=== PATIENT | female | born 1990 ===

== ENCOUNTER 2016-08-27 08:24 | Observation (INO) | payer MEDICAID ==
[2016-08-27 08:29] VITALS: BMI 22.7
--- NOTE | 2016-08-27 08:52 | ED PDOC ---
HPI: General Adult Time Seen by Provider: 08/27/16 08:49 Chief Complaint (Provider): syncopal episode History Per: Patient History/Exam Limitations: no limitations Additional Complaint(s): 26yo female comes to the ED complaining of a syncopal episode this morning. States she had 2 similar episodes in the past 2 weeks. Prior to each episode patient feels "hot and cold". Describes episodes as waking up on the floor. She currently has some abdominal pain and vomit. No chest pain, shortness of breath. Past Medical History Reviewed: Historical Data, Nursing Documentation, Vital Signs Vital Signs: Last Vital Signs Temp 98.6 F 08/27/16 08:28 Pulse 92 H 08/27/16 08:28 Resp 19 08/27/16 08:28 BP 98/62 L 08/27/16 08:28 Pulse Ox 100 08/27/16 08:57 - Medical History PMH: Anxiety - Surgical History Surgical History: - Family History Family History: States: Diabetes, Hypertension - Allergies Allergies/Adverse Reactions: Allergies Allergy/AdvReac Type Severity Reaction Status Date / Time shellfish derived Allergy Verified 08/27/16 08:55 Review of Systems ROS Statement: Except As Marked, All Systems Reviewed And Found Negative Cardiovascular: Negative for: Chest Pain Respiratory: Negative for: Shortness of Breath Gastrointestinal: Positive for: Vomiting, Abdominal Pain Physical Exam - Reviewed Nursing Documentation Reviewed: Yes Vital Signs Reviewed: Yes - Physical Exam Appears: Positive for: Well, Non-toxic, No Acute Distress Head Exam: Positive for: ATRAUMATIC, NORMAL INSPECTION, NORMOCEPHALIC Skin: Positive for: Warm, Dry Eye Exam: Positive for: EOMI, PERRL Cardiovascular/Chest: Positive for: Regular Rate, Rhythm Respiratory: Positive for: Normal Breath Sounds. Negative for: Rales, Rhonchi, Wheezing Gastrointestinal/Abdominal: Positive for: Normal Exam, Soft. Negative for: Tenderness Extremity: Positive for: Normal ROM Neurologic/Psych: Positive for: Alert, Oriented (x3) - Laboratory Results Result Diagrams: 08/27/16 09:10 08/27/16 09:10 - ECG O2 Sat by Pulse Oximetry: 100 (RA) Pulse Ox Interpretation: Normal Medical Decision Making Medical Decision Makin CBC ordered. Disposition - Clinical Impression Clinical Impression: Syncope - Patient ED Disposition Is Patient to be Admitted: Yes - Disposition Disposition Time: 10:20 Condition: FAIR - Pt Status Changed To: Hospital Disposition Of: Observation - POA Present On Arrival: None Additional Comments - Additional Comments Additional Comments: Scribe Attestation Documented by Diogenes Workman acting as a scribe for Herman Lockwood MD. Provider Attestation All medical record entries made by the Scribe were at my direction and personally dictated by me. I have reviewed the chart and agree that the record accurately reflects my personal performance of the history, physical exam, medical decision making, and the department course for this patient. I have also personally directed, reviewed, and agree with the discharge instructions and disposition
[2016-08-27] MEDS: Sodium Chloride 0.9% 1,000 ML IV STA (09:15)
[2016-08-27 09:30] LABS: BASO % 0.1 % (0.0-2.0); EOS # 0.1 K/uL (0.0-0.7); EOS % 0.7 % (0.0-4.0); HEMATOCRIT 39.8 % (34.0-47.0); LYMPH # 0.5 K/uL (1.0-4.3); LYMPH % 4.7 % (20.0-40.0); MEAN CORPUSCULAR HEMOGLOBIN 27.7 pg (27.0-31.0); MEAN CORPUSCULAR HGB CONC 33.8 g/dL (33.0-37.0); MEAN PLATELET VOLUME 8.9 fl (7.2-11.7); MONO # 0.4 K/uL (0.0-0.8); MONO % 3.6 % (0.0-10.0); NEUT # 9.3 K/uL (1.8-7.0); NEUT % 90.9 % (50.0-75.0); PLATELET COUNT 202 K/uL (130-400); RED CELL DISTRIBUTION WIDTH 14.2 % (11.5-14.5); WHITE BLOOD COUNT 10.3 K/uL (4.8-10.8)
[2016-08-27 09:43] LABS: ALB/GLOB RATIO 1.5 (1.0-2.1); ALKALINE PHOSPHATASE 63 U/L (38-126); ALT/SGPT 48 U/L (9-52); AST/SGOT 32 U/L (14-36); BILIRUBIN,TOTAL 0.5 mg/dl (0.2-1.3); BLOOD UREA NITROGEN 12 mg/dl (7-17); CALCIUM 9.1 mg/dL (8.4-10.2); CARBON DIOXIDE 24 mmol/L (22-30); CHLORIDE 104 mmol/L (98-107); GFR AFRICAN-AMERICAN > 60; GLUCOSE,RANDOM 93 mg/dL (65-105); POTASSIUM 3.9 MMOL/L (3.6-5.0); SODIUM 140 mmol/l (132-148); TOTAL PROTEIN 7.7 G/DL (6.3-8.2)
--- NOTE | 2016-08-27 10:00 | CT ---
PROCEDURE: CT HEAD WITHOUT CONTRAST. HISTORY: Syncope COMPARISON: 12/09/2013. TECHNIQUE: Axial computed tomography images were obtained through the head/brain without intravenous contrast. Radiation dose: Total exam DLP = 782.56 mGy-cm. This CT exam was performed using one or more of the following dose reduction techniques: Automated exposure control, adjustment of the mA and/or kV according to patient size, and/or use of iterative reconstruction technique. FINDINGS: HEMORRHAGE: No intracranial hemorrhage. BRAIN: No mass, mass effect, extra-axial fluid collection or edema. Beal-white matter differentiation is preserved. VENTRICLES: The ventricles are normal in size, shape and configuration.. CALVARIUM: The skull base and calvarium are normal. PARANASAL SINUSES: Predominantly clear. MASTOID AIR CELLS: Predominantly clear nges. OTHER FINDINGS: None. IMPRESSION: No acute intracranial abnormality.
[2016-08-27 12:35] LABS: NEUTROPHIL 90 % (42-75); TOTAL CELLS COUNTED 100
--- NOTE | 2016-08-27 15:33 | CP.PCM.CON ---
History of Present Illness - History of Present Illness History of Present Illness: 26yo female comes to the ED complaining of a syncopal episode this morning. States she had 2 similar episodes in the past 2 weeks. Prior to each episode patient feels "hot and cold". Describes episodes as waking up on the floor. No chest pain, shortness of breath. Pt has had Syncopal episodes since 2013May 2013 tentaively Dx with New Onset seizure disorder she was advised to f/u with neuro She never followed up Has seen a MD as out pt for this EKG: normal x 2 Echo: Normal Good LV Function Labs all WNL Past Patient History - Past Social History Smoking Status: Never Smoked - PSYCHIATRIC Hx Anxiety: Yes Hx Substance Use: No - SURGICAL HISTORY Hx Section: Yes (x2) - ANESTHESIA Hx Anesthesia: Yes Hx Anesthesia Reactions: No Meds Allergies/Adverse Reactions: Allergies Allergy/AdvReac Type Severity Reaction Status Date / Time shellfish derived Allergy Verified 08/27/16 08:55 - Medications Medications: Current Medications Acetaminophen (Tylenol 325mg Tab) 650 mg PO Q4 PRN PRN Reason: Pain, Mild (1-3) Sodium Chloride (Sodium Chloride 0.9%) 1,000 mls @ 150 mls/hr IV .Q6H40M STA Stop: 08/27/16 15:35 Last Admin: 08/27/16 09:15 Dose: 150 mls/hr Ondansetron HCl (Zofran Inj) 4 mg IVP Q4 PRN PRN Reason: Nausea/Vomiting Physical Exam - Respiratory Exam Respiratory Exam: NORMAL BREATHING PATTERN - Cardiovascular Exam Cardiovascular Exam: REGULAR RHYTHM Results - Vital Signs Recent Vital Signs: Last Vital Signs Temp 85 F L 08/27/16 14:59 Pulse 90 08/27/16 12:30 Resp 12 08/27/16 14:59 BP 99/47 L 08/27/16 14:59 Pulse Ox 100 08/27/16 14:59 - Labs Result Diagrams: 08/27/16 09:10 08/27/16 09:10
--- NOTE | 2016-08-27 16:03 | CARD ---
APPROVED REPORT EKG Measurement Heart [id number] <Conclusion> Normal sinus rhythm Cannot rule out Anterior infarct, age undetermined (Were V2 and V3 lead switched??) Abnormal ECG
[2016-08-27] MEDS ORDERED: Gadodiamide 287 MG/ML VIAL (15ML) IV ONE (17:52)
--- NOTE | 2016-08-27 18:17 | CON ---
DATE: 08/27/2016 CHIEF COMPLAINT: Syncope. HISTORY OF PRESENT ILLNESS: A 26-year-old woman with history of anxiety who presented to the [facility] for a syncopal episode. Apparently, she has had nausea, vomiting and abdominal pain for the past f ew days and had passed out. She says she has history of syncopal episodes in the past where she had a hot and cold sensation and passed out. She also mentions that when she gets anxious, panics or ang ry she also passes out. No history of febrile seizures, no history of meningitis, no history of trau ma to the brain. Her blood pressure was 90/60 in the ER. She has not been hydrating throughout the day. She has been having very poor sleep over the past month due to her being home alone with her 2 kids and also has an active job as builder. No acute events overnight. No focal weakness in the ext remities. No seizure-like activity. She has a very flat affect. PAST MEDICAL HISTORY: Anxiety. PAST SURGICAL HISTORY: . SOCIAL HISTORY: No illicit drug use, smoking, or EtOH abuse. FAMILY HISTORY: Noncontributory. REVIEW OF SYSTEMS: A 14-point review of systems is negative except for the HPI. MEDICATIONS: Reviewed via nurse's reconciliation sheet. ALLERGIES: SHELLFISH. LABORATORIES: Sodium 140, potassium 3.9, chloride 104, carbon dioxide 24, BUN of 12, creatinine 0.6, random glucose 93. PHYSICAL EXAMINATION: VITAL SIGNS: Temperature 98.5, pulse rate 90, blood pressure 99/47, respiratory rate of 19, oxygen s aturation 100% on room air. GENERAL: The patient is sitting up in bed in no acute distress. HEENT: Atraumatic, normocephalic. PERRLA. Extraocular muscles intact. NECK: Supple, no JVD, no adenopathy noted. LUNGS: Clear to auscultation. No adventitious sounds. HEART: S1, S2, normal rate and rhythm. No murmurs, rubs, or gallops. ABDOMEN: Soft, nontender, nondistended. Bowel sounds are present. EXTREMITIES: No clubbing, no cyanosis. Peripheral pulses are 2+ felt bilaterally. NEUROLOGIC: The patient has a flat affect. The patient is alert, oriented to person, place, month a year. Speech is fluent, without any errors. Cranial nerves II-XII are intact. MOTOR: Normal tone, normal bulk of muscle. Moves all extremities equally. No pronator drift seen. DTRs 2+ throughout. SENSORY: Light touch, pinprick, proprioception, vibration intact. COORDINATION: Qwsgxq-[id number] intact. GAIT: Deferred for now. ASSESSMENT AND PLAN: This is a 26-year-old woman with history of syncopal episodes in the past, hist ory of anxiety, came in with syncope after nausea, vomiting and abdominal pain and had low systolic a nd diastolic blood pressures. CTA showed no acute intracranial abnormality. She has a very flat aff ect due to her anxiety. Neuro exam is otherwise nonfocal. IMPRESSION: Likely her syncope is most likely vasovagal type given her history of multiple syncopal events. Also, syncope could be secondary to cerebral hypoperfusion of the brain given her low fluid intake throughout the day as well as low blood pressures. I doubt this is a seizure, but will get an MRI of the brain with and without contrast to assess for any seizure focus in the temporal lobe and she will see me in the office for an ambulatory EEG to assess for more than a 24-hour period of any s eizure-like activity. At this time, continue current present medical management. Thank you for this consult. Ori Castaneda MD cc: [id number] TT: 08/27/2016 18:16:45 Confirmation # [id number] Dictation # [id number] shiv
--- NOTE | 2016-08-27 18:32 | HP ---
HISTORY OF PRESENT ILLNESS: The patient is a 26-year-old female who was admitted via the Emergency R oom because of a syncopal episode on the morning of admission. She stated that she had 2 similar epi sodes 2 weeks ago and has had prior episodes over the past several years. Syncopal episode in 2013, but she has not been compliant to follow up. She was thought to have a seizure disorder and was aske d to follow up with the neurologist, but never did. She indicated that she has had a lot of stress i n her life recently and had put it to the backburners. PAST MEDICAL HISTORY: Remarkable for anxiety disorder and recurrent seizure disorder. SOCIAL HISTORY: She does not smoke or drink and lives at home with her 3 children. REVIEW OF SYSTEMS: Essentially remarkable for this recurrent seizure episode. PHYSICAL EXAMINATION: GENERAL: The patient is alert, oriented, appears to be in no apparent distress right now. VITAL SIGNS: Blood pressure of 98/62 with a pulse of 92, respiratory rate 19. She is afebrile. O2 sat 100% on room air. SKIN: Shows fair turgor. HEENT: Pupils equal, react to light and accommodation. NECK: JVP flat. LUNGS: Clear. HEART: Regular. No murmurs or gallops. ABDOMEN: Soft, nontender, no organomegaly. BREASTS: Normal. EXTREMITIES: Shows no edema or cyanosis. GENITALIA AND RECTAL: Deferred. CENTRAL NERVOUS SYSTEM: Grossly intact. LABORATORY DATA: Reviewed. No gross deficits noted in labs. EKG and CAT scan of the brain also reviewed with no abnormality noted. Echocardiogram done, results pending. MRI of the brain ordered by neurology, results pending. IMPRESSION: Recurrent syncopal episodes. One has to rule out seizure disorder, rule out S[employer] patholo gy. Cardiac evaluation already ordered to rule out arrhythmias. PLAN: Neurocardiac workup. If clinically stable, will discharge to follow up with Dr. Castaneda as an outpatient for further neurology evaluation. Neuro checks ordered for the next 24 hours. Tristan Lynch MD cc: [id number] TT: 08/27/2016 18:31:56 shiv
[2016-08-28] MEDS: Sodium Chloride 0.9% 1,000 ML IV STA (00:54)
--- NOTE | 2016-08-28 08:43 | CARD ---
APPROVED REPORT EXAM: Two-dimensional and M-mode echocardiogram with Doppler and color Doppler. Other Information Quality : GoodRhythm : NSR INDICATION Syncope 2D DIMENSIONS IVSd0.85 (0.7-1.1cm)LVDd4.00 (3.9-5.9cm) LVOT Diameter1.72 (1.8-2.4cm)PWd0.73 (0.7-1.1cm) IVSs1.11 (0.8-1.2cm)LVDs2.27 (2.5-4.0cm) FS (%) 43.1 %PWs1.11 (0.8-1.2cm) M-Mode DIMENSIONS Left Atrium (MM)3.56 (2.5-4.0cm)IVSd0.74 (0.7-1.1cm) Aortic Root2.56 (2.2-3.7cm)LVDd4.16 (4.0-5.6cm) Aortic Cusp Exc.1.65 (1.5-2.0cm)PWd0.61 (0.7-1.1cm) IVSs1.38 cmFS (%) 46 % LVDs2.23 (2.0-3.8cm)PWs1.32 cm Mitral Valve E/A ratio0.0 TDI E/Lateral E'0.0E/Medial E'0.0 Pulmonary Valve PV Peak Iyngqtfe991.2cm/s LEFT VENTRICLE The left ventricle is normal size. There is normal left ventricular wall thickness. Left ventricle systolic function is normal. The Ejection Fraction is 65-70%. There is normal LV segmental wall motion. The left ventricular diastolic function is normal. RIGHT VENTRICLE The right ventricle is normal size. There is normal right ventricular wall thickness. The right ventricular systolic function is normal. ATRIA The left atrium size is normal. The right atrium size is normal. AORTIC VALVE The aortic valve is normal in structure and function. No aortic regurgitation is present. There is no aortic valvular stenosis. MITRAL VALVE The mitral valve is normal in structure and function. There is no evidence of mitral valve prolapse. There is no mitral valve stenosis. There is no mitral valve regurgitation noted. TRICUSPID VALVE The tricuspid valve is normal in structure and function. There is no tricuspid valve regurgitation noted. PULMONIC VALVE The pulmonary valve is normal in structure and function. There is no pulmonic valvular regurgitation. GREAT VESSELS The aortic root is normal in size. The IVC is normal in size and collapses >50% with inspiration. PERICARDIAL EFFUSION The pericardium appears normal. <Conclusion> The left ventricle is normal size. There is normal left ventricular wall thickness. Left ventricle systolic function is normal. The Ejection Fraction is 65-70%. The left ventricular diastolic function is normal. This was a normal echocardiographic study.
--- NOTE | 2016-08-28 09:16 | MRI ---
PROCEDURE: MRI BRAIN WITH AND WITHOUT CONTRAST HISTORY: syncope/sz COMPARISON: None. TECHNIQUE: Multiplanar, multisequence MR images of the brain were obtained with and without intravenous contrast enhancement. FINDINGS: HEMORRHAGE: None DWI: No evidence of an acute or early subacute infarction. BRAIN PARENCHYMA: No mass,mass effect or edema. No atrophy or chronic microvascular ischemic changes. ENHANCEMENT: No abnormal intracranial enhancement. VENTRICLES: Unremarkable. No hydrocephalus. CRANIUM: Unremarkable. ORBITS: Grossly unremarkable. PARANASAL SINUSES/MASTOIDS: Clear VASCULAR SYSTEM: Skull base flow voids intact. OTHER FINDINGS: None . IMPRESSION: Unremarkable pre and post contrast enhanced MRI of the brain.
--- NOTE | 2016-08-28 09:31 | CP.PCM.PN ---
Subjective - Date & Time of Evaluation Date of Evaluation: 08/28/16 Time of Evaluation: 09:31 - Subjective Subjective: FEELS WEAK TODAY NO SYNCOPE/SEIZURES Objective - Vital Signs/Intake and Output Vital Signs (last 24 hours): Temp Pulse Resp BP Pulse Ox 98.5 F 76 16 99/69 L 100 08/27/16 18:20 08/28/16 05:35 08/28/16 05:35 08/28/16 05:35 08/28/16 05:35 - Medications Medications: Current Medications Acetaminophen (Tylenol 325mg Tab) 650 mg PO Q4 PRN PRN Reason: Pain, Mild (1-3) Last Admin: 08/28/16 00:50 Dose: 650 mg Ondansetron HCl (Zofran Inj) 4 mg IVP Q4 PRN PRN Reason: Nausea/Vomiting - Constitutional Appears: Well - Head Exam Head Exam: ATRAUMATIC, NORMAL INSPECTION, NORMOCEPHALIC - Eye Exam Eye Exam: EOMI, Normal appearance, PERRL Pupil Exam: NORMAL ACCOMODATION, PERRL - ENT Exam ENT Exam: Mucous Membranes Moist, Normal Exam - Neck Exam Neck Exam: Full ROM, Normal Inspection. absent: Lymphadenopathy - Respiratory Exam Respiratory Exam: Clear to Ausculation Bilateral, NORMAL BREATHING PATTERN - Cardiovascular Exam Cardiovascular Exam: REGULAR RHYTHM, +S1, +S2. absent: Murmur - GI/Abdominal Exam GI & Abdominal Exam: Soft, Normal Bowel Sounds. absent: Tenderness - Rectal Exam Rectal Exam: NORMAL INSPECTION - Extremities Exam Extremities Exam: Full ROM, Normal Capillary Refill, Normal Inspection. absent : Joint Swelling, Pedal Edema - Back Exam Back Exam: NORMAL INSPECTION - Neurological Exam Neurological Exam: Alert, Awake, CN II-XII Intact, Normal Gait, Oriented x3 - Psychiatric Exam Psychiatric exam: Normal Affect, Normal Mood - Skin Skin Exam: Dry, Intact, Normal Color, Warm Assessment and Plan - Assessment and Plan (Free Text) Assessment: SYNCOPE/SEIZURES? Plan: CONTINUE PRESENT RX AWAIT EEG/MRI TODAY D/C AND FOLLOW UP WITH NEUROLOGY IF ALL TESTS ARE UNREMARKABLE DR GATES-NEUROLOGIST SUGGEST PROLONGED EEG MONITORING OUT PT AND WILL SEE PT IN OFFICE ONCE D/LUANNE
--- NOTE | 2016-08-28 11:58 | CP.PCM.CON ---
History of Present Illness - History of Present Illness History of Present Illness: Need to rule out medical cause of syncope prior to making a psychiatric diagnosis. Past Patient History - Past Social History Smoking Status: Never Smoked - PSYCHIATRIC Hx Anxiety: Yes Hx Substance Use: No - SURGICAL HISTORY Hx Section: Yes (x2) - ANESTHESIA Hx Anesthesia: Yes Hx Anesthesia Reactions: No Meds Allergies/Adverse Reactions: Allergies Allergy/AdvReac Type Severity Reaction Status Date / Time shellfish derived Allergy Verified 08/27/16 08:55 - Medications Medications: Current Medications Acetaminophen (Tylenol 325mg Tab) 650 mg PO Q4 PRN PRN Reason: Pain, Mild (1-3) Last Admin: 08/28/16 00:50 Dose: 650 mg Ondansetron HCl (Zofran Inj) 4 mg IVP Q4 PRN PRN Reason: Nausea/Vomiting Results - Vital Signs Recent Vital Signs: Last Vital Signs Temp 98.5 F 08/27/16 18:20 Pulse 76 08/28/16 05:35 Resp 16 08/28/16 05:35 BP 99/69 L 08/28/16 05:35 Pulse Ox 100 08/28/16 05:35 - Labs Result Diagrams: 08/27/16 09:10 08/27/16 09:10
--- NOTE | 2016-08-28 14:11 | PN ---
DATE: 08/28/2016 CHIEF COMPLAINT: Follow up for syncope. SUBJECTIVE: The patient had no acute events overnight. No further syncopal events. The patient's M RI of the brain with and without contrast was totally unremarkable. EEG was normal. No focal episod es overnight. The patient is doing well. PAST MEDICAL HISTORY: Anxiety. PAST SURGICAL HISTORY: . SOCIAL HISTORY: No illicit drug use, smoking, or ETOH abuse. FAMILY HISTORY: Noncontributory. REVIEW OF SYSTEMS: A 14-point review of systems is negative except for the HPI. ALLERGIES: ALLERGIC TO SHELLFISH. LABORATORY DATA: Labs were reviewed. MRI of the brain is unremarkable. PHYSICAL EXAMINATION: VITAL SIGNS: Temperature of 98.5, pulse rate of 82, blood pressure of 86/66, respiratory rate 14, ox ygen saturation 99% on room air. GENERAL: The patient is sitting up in bed in no acute distress. HEENT: Atraumatic, normocephalic. PERRLA. Extraocular muscles intact. NECK: Supple, no JVD, no adenopathy noted. LUNGS: Clear to auscultation. No adventitious sounds. HEART: S1, S2, normal rate and rhythm. No murmurs, rubs, or gallops. ABDOMEN: Soft, nontender, nondistended. Bowel sounds are present. EXTREMITIES: No clubbing, no cyanosis. Peripheral pulses 2+ felt bilaterally. NEUROLOGIC: The patient is alert, oriented to person, place, month and year. Speech is fluent, with out any errors. Cranial nerves II through XII are intact. MOTOR: Moves all extremities equally. Toes are downgoing bilaterally. SENSORY: Light touch, pinprick, proprioception, vibration intact. DTRs are 2+ throughout. COORDINATION: Qehjbd-xg-jxnv intact. GAIT: Deferred for now. ASSESSMENT AND PLAN: This is a 26-year-old woman with history of syncopal episode in the past, histo ry of anxiety, came in with a syncopal episode after nausea, vomiting, abdominal pain, had low systol ic and diastolic blood pressure. CT head showed no acute intracranial abnormality. She has very flat affect due to anxiety. Neuro exam is nonfocal. MRI of the brain showed no acute intracranial abnor mality. EEG was normal. Her syncope is most likely vasovagal type given history of multiple syncopa l events. Could be secondary to transient cerebral hypoperfusion to the brain due to her low systoli c and diastolic blood pressures. I doubt this is a seizure at all. At this time, she can follow up in our office for an ambulatory EEG to assess more than a 24-hour period of electrographic phenomena. At this time, continue current present medical management. She is clinically stable from my standp oint. Will sign off. Ori Castaneda MD cc: [id number] TT: 08/28/2016 14:10:48 Confirmation # [id number] Dictation # [id number]
--- NOTE | 2016-08-28 14:27 | EEG ---
DATE: 08/28/2016 CONDITION OF RECORDING: Awake. DIAGNOSIS: Evaluate for syncope. MEDICATIONS: Reviewed via nurse's reconciliation sheet. INTERPRETATION: This is a 16-channel international recording. The background activity is composed o f 8 cycles per second. There was a small amount of beta activity of 16-20 cycles per second seen in this tracing. There was a small amount of theta activity of 5-7 cycles per second seen in this felicia ng. Drowsiness was characterized by mixed beta and theta activities. Sleep was characterized by nancie amilcar transient waves, sleep spindles and bilateral slowing. Photic stimulation showed no change in th e tracing. No paroxysmal activity noted in this recording. CONCLUSION: This is a normal electroencephalogram, awake in nature. No epileptiform activity. Plea se clinically correlate. Ori Castaneda MD cc: [id number] TT: 08/28/2016 14:26:11 Confirmation # [id number] Dictation # [id number] mn
[2016-08-28 15:01] VITALS: BP 111/71; PULSE 83; RESP 19; TEMP 98; O2SAT 99
--- NOTE | 2016-09-02 08:31 | CP.PCM.DIS ---
Provider - Provider Date of Admission: 08/27/16 10:19 Attending physician: Tristan Lynch MD Time Spent in preparation of Discharge (in minutes): 35 Diagnosis - Discharge Diagnosis (1) Syncope Status: Acute Hospital Course - Lab Results Lab Results: Most Recent Lab Values WBC 10.3 K/uL (4.8-10.8) 08/27/16 09:10 RBC 4.86 Mil/uL (3.80-5.20) 08/27/16 09:10 Hgb 13.4 g/dL (12.0-16.0) 08/27/16 09:10 Hct 39.8 % (34.0-47.0) 08/27/16 09:10 MCV 82.0 fl (81.0-99.0) 08/27/16 09:10 MCH 27.7 pg (27.0-31.0) 08/27/16 09:10 MCHC 33.8 g/dL (33.0-37.0) 08/27/16 09:10 RDW 14.2 % (11.5-14.5) 08/27/16 09:10 Plt Count 202 K/uL (130-400) 08/27/16 09:10 MPV 8.9 fl (7.2-11.7) 08/27/16 09:10 Neut % (Auto) 90.9 % (50.0-75.0) H 08/27/16 09:10 Lymph % (Auto) 4.7 % (20.0-40.0) L 08/27/16 09:10 Park % (Auto) 3.6 % (0.0-10.0) 08/27/16 09:10 Eos % (Auto) 0.7 % (0.0-4.0) 08/27/16 09:10 Baso % (Auto) 0.1 % (0.0-2.0) 08/27/16 09:10 Neut # 9.3 K/uL (1.8-7.0) H 08/27/16 09:10 Lymph # 0.5 K/uL (1.0-4.3) L 08/27/16 09:10 Park # 0.4 K/uL (0.0-0.8) 08/27/16 09:10 Eos # 0.1 K/uL (0.0-0.7) 08/27/16 09:10 Baso # 0.0 K/uL (0.0-0.2) 08/27/16 09:10 Neutrophils % (Manual) 90 % (42-75) H 08/27/16 09:10 Lymphocytes % (Manual) 7 % (20-50) L 08/27/16 09:10 Monocytes % (Manual) 3 % (0-10) 08/27/16 09:10 Platelet Estimate Normal (NORMAL) 08/27/16 09:10 RBC Morphology Normal (NORMAL) 08/27/16 09:10 Sodium 140 mmol/l (132-148) 08/27/16 09:10 Potassium 3.9 MMOL/L (3.6-5.0) 08/27/16 09:10 Chloride 104 mmol/L (98-107) 08/27/16 09:10 Carbon Dioxide 24 mmol/L (22-30) 08/27/16 09:10 Anion Gap 16 (10-20) 08/27/16 09:10 BUN 12 mg/dl (7-17) 08/27/16 09:10 Creatinine 0.6 mg/dL (0.7-1.2) L 08/27/16 09:10 Est GFR ( Amer) > 60 08/27/16 09:10 Est GFR (Non-Af Amer) > 60 08/27/16 09:10 Random Glucose 93 mg/dL (65-105) 08/27/16 09:10 Calcium 9.1 mg/dL (8.4-10.2) 08/27/16 09:10 Total Bilirubin 0.5 mg/dl (0.2-1.3) 08/27/16 09:10 AST 32 U/L (14-36) 08/27/16 09:10 ALT 48 U/L (9-52) 08/27/16 09:10 Alkaline Phosphatase 63 U/L (38-126) 08/27/16 09:10 Total Protein 7.7 G/DL (6.3-8.2) 08/27/16 09:10 Albumin 4.6 g/dL (3.5-5.0) 08/27/16 09:10 Globulin 3.1 gm/dL (2.2-3.9) 08/27/16 09:10 Albumin/Globulin Ratio 1.5 (1.0-2.1) 08/27/16 09:10 - Hospital Course Hospital Course: NO RECURRENCE OF SYNCOPE/SEIZURES ALL NEUROLOGY WORKUP NEGATIVE Discharge Exam - Head Exam Head Exam: ATRAUMATIC, NORMAL INSPECTION, NORMOCEPHALIC - Eye Exam Eye Exam: EOMI, Normal appearance, PERRL Pupil Exam: NORMAL ACCOMODATION, PERRL - GI/Abdominal Exam GI & Abdominal Exam: Normal Bowel Sounds - Rectal Exam Rectal Exam: NORMAL INSPECTION - Neurological Exam Neurological exam: Alert, CN II-XII Intact, Normal Gait, Oriented x3, Reflexes Normal - Psychiatric Exam Psychiatric exam: Normal Affect, Normal Mood - Skin Skin Exam: Dry, Intact, Normal Color, Warm Discharge Plan - Follow Up Plan Condition: FAIR Disposition: HOME/ ROUTINE Patient education suggested?: Yes Instructions: Syncope (ED) Additional Instructions: patient cleared for discharge to home today by and pt. will f/u with in 1 week Referrals: Ori Castaneda MD [Staff Provider] -
== END 2016-08-28 17:02 | disposition home or self-care (01) ==
LOC: H.ER 08:24 → H.ERHOLD 10:19
PROVIDERS: ADMIT Internal Medicine Pulmonary Disease; ATTEND Internal Medicine Pulmonary Disease
DX: R55 Syncope and collapse (principal); F41.9 Anxiety disorder, unspecified; G40.909 Epilepsy, unspecified, not intractable, without status epilepticus; Z91.19 Patient's noncompliance with other medical treatment and regimen; Z91.013 Allergy to seafood